=== PATIENT | female | born 1930 | race Caucasian/White ===

== ENCOUNTER 2017-07-20 22:16 | Inpatient (IN) | payer OTHER, MEDICARE ==
[~2017-07-20] VITALS: Ht 162.6 cm; Wt 80.7 kg
[2017-07-20 22:47] LABS: HEMATOCRIT 33.7 % (36.0-46.0); HEMOGLOBIN 11.6 G/DL (11.9-15.5); MCH 30.4 PG (29.0-34.0); MCHC 34.4 G/DL (30.0-36.0); MCV 88.2 FL (83-99); PLATELET COUNT 226 K/uL (156-360); RBC DIS.WIDTH-CV 13.3 % (11.8-14.6); RBC DIS.WIDTH-SD 42.8 % (39-53); RED BLOOD COUNT 3.82 M/uL (3.80-5.20); WHITE BLOOD COUNT 12.6 K/uL (4.1-10.2)
[2017-07-20 22:57] LABS: CHLORIDE 100 mEq/L (99-109); POTASSIUM 4.1 mEq/L (3.7-5.4); SODIUM 135 mEq/L (136-147)
[2017-07-20 22:59] LABS: GLUCOSE 111 mg/dL (70-99)
[2017-07-20 23:02] LABS: CREATININE 1.3 mg/dL (0.6-1.3); GFR ESTIMATE (CALCULATED) 41 mL/min/
[2017-07-20 23:03] LABS: UREA NITROGEN (BUN) 20 mg/dL (9-23)
[2017-07-20 23:10] LABS: TROP-I INTERPRETATION NEGATIVE; TROPONIN-I 0.07 ng/mL (0.0-0.30)
[2017-07-20] MEDS ORDERED: SYNTHROID50 MCG PO (23:55)
[2017-07-20] MEDS ORDERED: PRAVACHOL80 MG PO (23:55)
[2017-07-20] MEDS ORDERED: DAILY VALUE1 EACH PO (23:56)
[2017-07-20] MEDS ORDERED: ADULT ASPIRIN R81 MG PO (23:56)
[2017-07-20] MEDS ORDERED: CARDIZEM CD,CA240 MG PO (23:56)
[2017-07-20] MEDS ORDERED: NOVOLOG MI100 UNIT/3 SC ×2 (23:56→23:57)
[2017-07-20] MEDS ORDERED: CALCIUM 600 +1 EAC2 PO (23:56)
[2017-07-21] VITALS (7 sets, daily range): BP systolic 116–144; BP diastolic 61–80
[2017-07-21 05:36] LABS: HEMATOCRIT 32.8 % (36.0-46.0); HEMOGLOBIN 10.8 G/DL (11.9-15.5); MCH 29.5 PG (29.0-34.0); MCHC 32.9 G/DL (30.0-36.0); MCV 89.6 FL (83-99); PLATELET COUNT 222 K/uL (156-360); RBC DIS.WIDTH-CV 13.4 % (11.8-14.6); RBC DIS.WIDTH-SD 43.8 % (39-53); RED BLOOD COUNT 3.66 M/uL (3.80-5.20); WHITE BLOOD COUNT 10.4 K/uL (4.1-10.2)
[2017-07-21 05:54] LABS: TROP-I INTERPRETATION NEGATIVE; TROPONIN-I 0.08 ng/mL (0.0-0.30)
[2017-07-21 06:00] LABS: ALBUMIN 2.9 G/DL (3.2-4.8); ALKALINE PHOSPHATASE 43 IU/L (3-129); ALT (GPT) 15 IU/L (3-49); AST (GOT) 31 IU/L (2-34); CHLORIDE 101 MEQ/L (99-109); CREATININE 1.4 MG/DL (0.6-1.3); GFR ESTIMATE (CALCULATED) 38 mL/min/; GLUCOSE 104 mg/dL (70-99); POTASSIUM 3.7 MEQ/L (3.7-5.4); SODIUM 137 MEQ/L (136-147); TOTAL BILIRUBIN 0.7 MG/DL (0.0-1.0); UREA NITROGEN (BUN) 20 mg/dL (9-23)
[2017-07-21 06:23] LABS: TOTAL PROTEIN 5.8 G/DL (6.4-8.3)
[2017-07-21 08:57] LABS: HEMOGLOBIN A1c (GLYCOHEMOGLOB) 5.1 % (Below 5.7)
[2017-07-21 12:35] LABS: TROP-I INTERPRETATION NEGATIVE; TROPONIN-I 0.06 ng/mL (0.0-0.30)
[2017-07-22 05:07] VITALS: BP 154/68
[2017-07-22 05:22] LABS: BASOPHIL (%) 0.6 % (0-1); BASOPHIL COUNT 0.1 K/uL (0-0.1); EOSINOPHIL (%) 3.5 % (0-5); EOSINOPHIL COUNT 0.3 K/uL (0-0.3); HEMATOCRIT 32.8 % (36.0-46.0); HEMOGLOBIN 10.7 G/DL (11.9-15.5); IMMATURE GRANULOCYTE (%) 0.3 % (0.0-0.7); LYMPHOCYTE (%) 18.2 % (15-42); LYMPHOCYTE COUNT 1.6 K/uL (1.0-2.8); MCH 29.6 PG (29.0-34.0); MCHC 32.6 G/DL (30.0-36.0); MCV 90.6 FL (83-99); MONOCYTE (%) 8.1 % (3-12); MONOCYTE COUNT 0.7 K/uL (0-0.8); NEUTROPHIL (%) 69.3 % (45-76); NEUTROPHIL COUNT 6.1 K/uL (1.8-6.4); PLATELET COUNT 200 K/uL (156-360); RBC DIS.WIDTH-CV 13.5 % (11.8-14.6); RBC DIS.WIDTH-SD 44.5 % (39-53); RED BLOOD COUNT 3.62 M/uL (3.80-5.20); WHITE BLOOD COUNT 8.7 K/uL (4.1-10.2)
[2017-07-22 05:48] LABS: CHLORIDE 98 MEQ/L (99-109); CREATININE 1.6 MG/DL (0.6-1.3); GFR ESTIMATE (CALCULATED) 33 mL/min/; GLUCOSE 106 mg/dL (70-99); POTASSIUM 3.9 MEQ/L (3.7-5.4); SODIUM 135 MEQ/L (136-147); UREA NITROGEN (BUN) 19 mg/dL (9-23)
[2017-07-22 07:25] VITALS: BP 143/64
[2017-07-22 10:35] LABS: BILIRUBIN NEGATIVE; BLOOD NEGATIVE; COLOR STRAW ((YELLOW)); GLUCOSE (STRIP) NEGATIVE; KETONES NEGATIVE; LEUKOCYTES NEGATIVE; NITRITE NEGATIVE; PROTEIN (STRIP) NEGATIVE; SPECIFIC GRAVITY 1.004 (1.000-1.030); UROBILINOGEN 0.2 MG/DL (0.2-1.0)
[2017-07-22 10:36] LABS: APPEARANCE CLEAR ((CLEAR)); UCUL ADDED? NO
[2017-07-22 12:00] VITALS: BP 147/65
[2017-07-22 16:20] VITALS: BP 136/57
[2017-07-22 18:53] VITALS: BP 137/61
[2017-07-22 22:42] VITALS: BP 131/61
[2017-07-23 04:30] VITALS: BP 151/67
[2017-07-23 05:44] LABS: BASOPHIL (%) 0.6 % (0-1); EOSINOPHIL (%) 3.8 % (0-5); EOSINOPHIL COUNT 0.3 K/uL (0-0.3); HEMATOCRIT 34.6 % (36.0-46.0); HEMOGLOBIN 11.1 G/DL (11.9-15.5); IMMATURE GRANULOCYTE (%) 0.4 % (0.0-0.7); LYMPHOCYTE (%) 16.5 % (15-42); LYMPHOCYTE COUNT 1.2 K/uL (1.0-2.8); MCH 29.7 PG (29.0-34.0); MCHC 32.1 G/DL (30.0-36.0); MCV 92.5 FL (83-99); MONOCYTE (%) 6.4 % (3-12); MONOCYTE COUNT 0.5 K/uL (0-0.8); NEUTROPHIL (%) 72.3 % (45-76); NEUTROPHIL COUNT 5.2 K/uL (1.8-6.4); PLATELET COUNT 196 K/uL (156-360); RBC DIS.WIDTH-CV 13.7 % (11.8-14.6); RBC DIS.WIDTH-SD 46.5 % (39-53); RED BLOOD COUNT 3.74 M/uL (3.80-5.20); WHITE BLOOD COUNT 7.2 K/uL (4.1-10.2)
[2017-07-23 06:08] LABS: CHLORIDE 98 MEQ/L (99-109); CREATININE 1.3 MG/DL (0.6-1.3); GFR ESTIMATE (CALCULATED) 41 mL/min/; GLUCOSE 128 mg/dL (70-99); POTASSIUM 4.1 MEQ/L (3.7-5.4); SODIUM 141 MEQ/L (136-147); UREA NITROGEN (BUN) 18 mg/dL (9-23)
[2017-07-23 07:20] VITALS: BP 188/79
[2017-07-23 08:16] LABS: BASE EXCESS 9.3 mEq/L (-3 to +3); BICARBONATE 35.9 mEq/L (22-26); CARBOXY HGB 2.3 % (0-5); COMMENTS - BLOOD GASES C+; DEVICE NC; METHEMOGLOBIN 1.4 % (0-1.5); O2 FLOW 2 L/MIN; PCO2 58 mm Hg (35-45); PO2 76 mm Hg (80-100); SITE RR; TOTAL RESP RATE 16 resp/min
[2017-07-23 12:10] VITALS: BP 146/65
[2017-07-23 15:58] VITALS: BP 142/65
[2017-07-23 19:28] VITALS: BP 145/114
[2017-07-23 23:37] VITALS: BP 159/69
[2017-07-24] VITALS (7 sets, daily range): BP systolic 127–174; BP diastolic 60–70
[2017-07-24 06:27] LABS: CHLORIDE 101 MEQ/L (99-109); CREATININE 1.1 MG/DL (0.6-1.3); GFR ESTIMATE (CALCULATED) 50 mL/min/; GLUCOSE 98 mg/dL (70-99); SODIUM 142 MEQ/L (136-147); UREA NITROGEN (BUN) 16 mg/dL (9-23)
[2017-07-24 08:23] LABS: TROP-I INTERPRETATION NEGATIVE; TROPONIN-I 0.05 ng/mL (0.0-0.30)
[2017-07-25 03:15] VITALS: BP 168/69
[2017-07-25 05:07] LABS: HEMATOCRIT 34.3 % (36.0-46.0); HEMOGLOBIN 11.1 G/DL (11.9-15.5); MCH 29.5 PG (29.0-34.0); MCHC 32.4 G/DL (30.0-36.0); MCV 91.2 FL (83-99); PLATELET COUNT 207 K/uL (156-360); RBC DIS.WIDTH-CV 13.9 % (11.8-14.6); RBC DIS.WIDTH-SD 46.5 % (39-53); RED BLOOD COUNT 3.76 M/uL (3.80-5.20); WHITE BLOOD COUNT 9.4 K/uL (4.1-10.2)
[2017-07-25 05:46] LABS: CHLORIDE 97 MEQ/L (99-109); CREATININE 1.3 MG/DL (0.6-1.3); GFR ESTIMATE (CALCULATED) 41 mL/min/; GLUCOSE 115 mg/dL (70-99); POTASSIUM 3.7 MEQ/L (3.7-5.4); SODIUM 137 MEQ/L (136-147); UREA NITROGEN (BUN) 19 mg/dL (9-23)
[2017-07-25 08:03] VITALS: BP 133/62
[2017-07-25 12:56] VITALS: BP 144/65
[2017-07-25 15:03] VITALS: BP 162/73
[2017-07-25 19:15] VITALS: BP 166/72
[2017-07-26 00:23] VITALS: BP 166/72
[2017-07-26 03:29] VITALS: BP 130/61
[2017-07-26 08:21] VITALS: BP 132/63
[2017-07-26] MEDS ORDERED: LISINOPRIL5 MG PO (12:39)
[2017-07-26] MEDS ORDERED: SENNA LAX8.6 MG PO (12:40)
[2017-07-26] MEDS ORDERED: FUROSEMIDE20 MG PO (12:40)
[2017-07-26] MEDS ORDERED: DOCUSATE SODIU100 MG PO (12:40)
[2017-07-26] MEDS ORDERED: POLYETHYLENE GL17 GM PO (12:40)
[2017-07-26] MEDS ORDERED: Zeasorb Antifungal T TP (12:41)
[2017-07-26] MEDS ORDERED: NOVOLOG 10100 UNITS/ SC (12:41)
[2017-07-26] MEDS ORDERED: BACTRIM,SEPT1 TABLE1 PO (12:51)
== END 2017-07-26 15:33 | DRG 292 ==
LOC: EME 22:16 → 4EAST 07-21 00:50 → EDOF 07-21 00:50 → ENRESERV 07-21 00:51 → 4EAST 07-21 02:16
PROVIDERS: Hospitalist; Internal Medicine; Physician Assistant Medical
DX: I50.31 Acute diastolic (congestive) heart failure (principal); E66.01 Morbid (severe) obesity due to excess calories; E03.9 Hypothyroidism, unspecified; E78.00 Pure hypercholesterolemia, unspecified; B96.20 Unspecified Escherichia coli [E. coli] as the cause of diseases classified elsewhere; N39.0 Urinary tract infection, site not specified; N18.3 Chronic kidney disease, stage 3 (moderate); R74.8 Abnormal levels of other serum enzymes; E11.22 Type 2 diabetes mellitus with diabetic chronic kidney disease; Z66 Do not resuscitate; R09.02 Hypoxemia; E78.5 Hyperlipidemia, unspecified; J44.9 Chronic obstructive pulmonary disease, unspecified; Z68.32 Body mass index [BMI] 32.0-32.9, adult; I08.1 Rheumatic disorders of both mitral and tricuspid valves; J98.11 Atelectasis; Z79.4 Long term (current) use of insulin; I44.7 Left bundle-branch block, unspecified
CPT/HCPCS: 36415; 36600; 71045; 71046; 71250; 80048; 80053; 81003; 82803; 82948; 83036; 83880; 84439; 84443; 84484; 85025; 85027; 87040; 87077; 87086; 87086 GA; 87186; 93005; 93306; 94799; 97530 GP; 99281; 99285; J0360; J0696; J1644; J1815; J1940; J2405

== ENCOUNTER 2017-09-11 12:40 | Inpatient (IN) | payer OTHER, MEDICARE ==
[~2017-09-11] VITALS: Ht 154.9 cm; Wt 75.7 kg
[~2017-09-11 12:40] MED LIST: ADULT ASPIRIN R81 MG PO; BACTRIM,SEPT1 TABLE1 PO; CALCIUM 600 +1 EAC2 PO; CARDIZEM CD,CA240 MG PO; DAILY VALUE1 EACH PO; DOCUSATE SODIU100 MG PO; FUROSEMIDE20 MG PO; LISINOPRIL5 MG PO; NOVOLOG 10100 UNITS/ SC; NOVOLOG MI100 UNIT/3 SC; POLYETHYLENE GL17 GM PO; PRAVACHOL80 MG PO; SENNA LAX8.6 MG PO; SYNTHROID50 MCG PO; Zeasorb Antifungal T TP
[2017-09-11 13:17] LABS: HEMATOCRIT 36.7 % (36.0-46.0); HEMOGLOBIN 12.2 G/DL (11.9-15.5); MCH 29.4 PG (29.0-34.0); MCHC 33.2 G/DL (30.0-36.0); MCV 88.4 FL (83-99); PLATELET COUNT 290 K/uL (156-360); RBC DIS.WIDTH-CV 13.6 % (11.8-14.6); RBC DIS.WIDTH-SD 44.2 % (39-53); RED BLOOD COUNT 4.15 M/uL (3.80-5.20)
[2017-09-11 13:26] LABS: CHLORIDE 102 mEq/L (99-109); POTASSIUM 4.7 mEq/L (3.7-5.4); SODIUM 139 mEq/L (136-147)
[2017-09-11 13:27] LABS: GLUCOSE 162 mg/dL (70-99)
[2017-09-11 13:31] LABS: CREATININE 2.8 mg/dL (0.6-1.3); GFR ESTIMATE (CALCULATED) 17 mL/min/
[2017-09-11 13:32] LABS: UREA NITROGEN (BUN) 88 mg/dL (9-23)
[2017-09-11 14:43] LABS: APPEARANCE CLEAR ((CLEAR)); BILIRUBIN NEGATIVE; BLOOD SMALL; COLOR YELLOW ((YELLOW)); GLUCOSE (STRIP) NEGATIVE; KETONES NEGATIVE; LEUKOCYTES NEGATIVE; NITRITE NEGATIVE; PROTEIN (STRIP) NEGATIVE; SPECIFIC GRAVITY 1.014 (1.000-1.030); UROBILINOGEN 0.2 MG/DL (0.2-1.0)
[2017-09-11 15:01] LABS: BACTERIA RARE /HPF; EPITHELIAL CELLS RARE /HPF; MUCUS TRACE /LPF; RED BLOOD CELLS 0-5 /HPF (0-5); UCUL ADDED? NO; WHITE BLOOD CELLS 0-5 /HPF (0-5)
[2017-09-11] MEDS ORDERED: LEVO-T50 MCG PO (16:49)
[2017-09-11] MEDS ORDERED: LASIX20 MG PO (16:49)
[2017-09-11] MEDS ORDERED: PRINIVIL5 MG PO (16:49)
[2017-09-11] MEDS ORDERED: NOVOLOG MI100 UNIT/3 SC (16:51)
[2017-09-11 17:36] LABS: ALBUMIN 3.4 g/dL (3.2-4.8)
[2017-09-11 17:39] LABS: TOTAL PROTEIN 7.3 g/dL (6.4-8.3)
[2017-09-11 17:41] LABS: TOTAL BILIRUBIN 0.6 mg/dL (0.0-1.0)
[2017-09-11 17:42] LABS: ALKALINE PHOSPHATASE 84 IU/L (3-129)
[2017-09-11 17:44] LABS: AST (GOT) 35 IU/L (2-34); DIRECT BILIRUBIN 0.4 mg/dL (0.0-0.3)
[2017-09-11 17:45] LABS: ALT (GPT) 18 IU/L (3-49)
[2017-09-11 19:47] VITALS: BP 168/69
[2017-09-11 23:57] VITALS: BP 158/60
[2017-09-12 04:07] VITALS: BP 160/60
[2017-09-12 07:41] LABS: HEMATOCRIT 34.9 % (36.0-46.0); HEMOGLOBIN 11.2 G/DL (11.9-15.5); MCH 28.7 PG (29.0-34.0); MCHC 32.1 G/DL (30.0-36.0); MCV 89.5 FL (83-99); PLATELET COUNT 277 K/uL (156-360); RBC DIS.WIDTH-CV 13.8 % (11.8-14.6); RBC DIS.WIDTH-SD 44.7 % (39-53); WHITE BLOOD COUNT 7.8 K/uL (4.1-10.2)
[2017-09-12 07:44] LABS: ALBUMIN 2.8 G/DL (3.2-4.8); ALKALINE PHOSPHATASE 60 IU/L (3-129); ALT (GPT) 13 IU/L (3-49); AST (GOT) 28 IU/L (2-34); CHLORIDE 109 MEQ/L (99-109); GLUCOSE 131 mg/dL (70-99); POTASSIUM 4.3 MEQ/L (3.7-5.4); SODIUM 143 MEQ/L (136-147); TOTAL BILIRUBIN 0.4 MG/DL (0.0-1.0); TOTAL PROTEIN 5.8 G/DL (6.4-8.3); UREA NITROGEN (BUN) 64 mg/dL (9-23)
[2017-09-12 07:47] LABS: CREATININE 1.6 MG/DL (0.6-1.3); GFR ESTIMATE (CALCULATED) 33 mL/min/
[2017-09-12 07:50] VITALS: BP 136/64
[2017-09-12 12:39] VITALS: BP 123/78
[2017-09-12 15:39] VITALS: BP 152/67
[2017-09-12 15:39] LABS: DIRECT BILIRUBIN 0.1 mg/dL (0.0-0.3)
[2017-09-12 15:50] LABS: THYROTROPIN (TSH) 1.5 MIU/L (0.4-5.5)
[2017-09-12 15:50] LABS: BASE EXCESS 1.7 mEq/L (-3 to +3); BICARBONATE 25.8 mEq/L (22-26); DEVICE RA; METHEMOGLOBIN 1.2 % (0-1.5); O2 SATURATION (CALCULATED) 96.6 % (95-99); PCO2 38 mm Hg (35-45); PO2 71 mm Hg (80-100); SITE RR; pH 7.44 (7.35-7.45)
[2017-09-12 15:51] LABS: TOTAL RESP RATE 18 resp/min
[2017-09-12 17:37] LABS: FOLIC ACID (FOLATE) > 22.0 NG/ML (5.0-22.0)
[2017-09-12 19:47] VITALS: BP 148/62
[2017-09-13 00:21] VITALS: BP 140/60
[2017-09-13 06:44] LABS: BASOPHIL (%) 0.5 % (0-1); EOSINOPHIL (%) 5.8 % (0-5); EOSINOPHIL COUNT 0.5 K/uL (0-0.3); HEMATOCRIT 36.6 % (36.0-46.0); HEMOGLOBIN 11.6 G/DL (11.9-15.5); IMMATURE GRANULOCYTE (%) 0.5 % (0.0-0.7); LYMPHOCYTE (%) 27.2 % (15-42); LYMPHOCYTE COUNT 2.1 K/uL (1.0-2.8); MCH 28.8 PG (29.0-34.0); MCHC 31.7 G/DL (30.0-36.0); MCV 90.8 FL (83-99); MONOCYTE (%) 7.7 % (3-12); MONOCYTE COUNT 0.6 K/uL (0-0.8); NEUTROPHIL (%) 58.3 % (45-76); NEUTROPHIL COUNT 4.5 K/uL (1.8-6.4); PLATELET COUNT 271 K/uL (156-360); RBC DIS.WIDTH-CV 13.8 % (11.8-14.6); RBC DIS.WIDTH-SD 46.4 % (39-53); RED BLOOD COUNT 4.03 M/uL (3.80-5.20); WHITE BLOOD COUNT 7.7 K/uL (4.1-10.2)
[2017-09-13 07:00] VITALS: BP 140/64
[2017-09-13 07:04] LABS: CHLORIDE 110 MEQ/L (99-109); CREATINE KINASE 193 IU/L (1-294); CREATININE 1.2 MG/DL (0.6-1.3); GFR ESTIMATE (CALCULATED) 45 mL/min/; GLUCOSE 118 mg/dL (70-99); POTASSIUM 4.3 MEQ/L (3.7-5.4); SODIUM 144 MEQ/L (136-147); UREA NITROGEN (BUN) 41 mg/dL (9-23)
[2017-09-13 16:08] VITALS: BP 137/56
[2017-09-14 00:02] VITALS: BP 141/67
[2017-09-14 06:41] LABS: BASOPHIL (%) 0.7 % (0-1); BASOPHIL COUNT 0.1 K/uL (0-0.1); EOSINOPHIL (%) 5.8 % (0-5); EOSINOPHIL COUNT 0.4 K/uL (0-0.3); HEMATOCRIT 36.4 % (36.0-46.0); HEMOGLOBIN 11.8 G/DL (11.9-15.5); IMMATURE GRANULOCYTE (%) 0.7 % (0.0-0.7); LYMPHOCYTE (%) 24.5 % (15-42); LYMPHOCYTE COUNT 1.9 K/uL (1.0-2.8); MCH 29.1 PG (29.0-34.0); MCHC 32.4 G/DL (30.0-36.0); MCV 89.9 FL (83-99); MONOCYTE (%) 7.3 % (3-12); MONOCYTE COUNT 0.6 K/uL (0-0.8); NEUTROPHIL COUNT 4.6 K/uL (1.8-6.4); PLATELET COUNT 282 K/uL (156-360); RBC DIS.WIDTH-CV 13.5 % (11.8-14.6); RBC DIS.WIDTH-SD 44.5 % (39-53); RED BLOOD COUNT 4.05 M/uL (3.80-5.20); WHITE BLOOD COUNT 7.6 K/uL (4.1-10.2)
[2017-09-14 07:02] LABS: CHLORIDE 108 MEQ/L (99-109); CREATININE 1.1 MG/DL (0.6-1.3); GFR ESTIMATE (CALCULATED) 50 mL/min/; GLUCOSE 135 mg/dL (70-99); POTASSIUM 4.4 MEQ/L (3.7-5.4); SODIUM 141 MEQ/L (136-147); UREA NITROGEN (BUN) 28 mg/dL (9-23)
[2017-09-14 07:54] VITALS: BP 181/74
[2017-09-14] MEDS ORDERED: FUROSEMIDE20 MG PO (12:08)
[2017-09-14] MEDS ORDERED: NORVASC5 MG PO (12:08)
[2017-09-14] MEDS ORDERED: Milk Of Magnesia,MOM PO (12:09)
[2017-09-14] MEDS ORDERED: BENZONATATE100 MG PO (12:09)
[2017-09-14] MEDS ORDERED: Zeasorb Antifungal T TP (12:09)
[2017-09-14 12:12] VITALS: BP 120/57
== END 2017-09-14 13:35 | DRG 682 ==
LOC: EME 12:40 → 2EAST 16:09 → EDOF 16:09 → ENRESERV 16:14 → CANRESERV 16:14 → ENRESERV 17:08 → 2EAST 19:14
PROVIDERS: Hospitalist; Internal Medicine; Internal Medicine Nephrology; Physician Assistant
DX: N17.9 Acute kidney failure, unspecified (principal); G93.40 Encephalopathy, unspecified; E86.0 Dehydration; J06.9 Acute upper respiratory infection, unspecified; E11.65 Type 2 diabetes mellitus with hyperglycemia; L89.159 Pressure ulcer of sacral region, unspecified stage; I13.0 Hypertensive heart and chronic kidney disease with heart failure and stage 1 through stage 4 chronic kidney disease, or unspecified chronic kidney disease; I50.32 Chronic diastolic (congestive) heart failure; E11.22 Type 2 diabetes mellitus with diabetic chronic kidney disease; N18.3 Chronic kidney disease, stage 3 (moderate); E03.9 Hypothyroidism, unspecified; E78.5 Hyperlipidemia, unspecified; E66.9 Obesity, unspecified; Z66 Do not resuscitate; Z90.5 Acquired absence of kidney; Z79.82 Long term (current) use of aspirin; Z68.31 Body mass index [BMI] 31.0-31.9, adult
CPT/HCPCS: 36600; 70450; 71046; 71250; 74176; 80048; 80053; 80076; 81003; 82140; 82248; 82550; 82607; 82746; 82803; 82948; 83605; 83880; 84443; 85025; 85027; 87040; 93005; 99281; 99285; J0456; J0696; J1644; J1815; J7030